=== PATIENT | male | born 1955 | race Caucasian/White ===

== ENCOUNTER 2020-12-03 12:39 | Emergency (ER) | payer MEDICARE, SELFPAY ==
[2020-12-03 13:00] VITALS: BP 122/78; PULSE 74; RESP 16; TEMP 36.3; O2SAT 100
--- NOTE | 2020-12-03 13:46 | ED.GENADULT ---
HPI - General Adult General Chief complaint: Extremity Problem,Nontraumatic Stated complaint: INFECTED TOE Time Seen by Provider: 12/03/20 13:46 Source: patient and RN notes reviewed Mode of arrival: ambulatory Limitations: no limitations History of Present Illness HPI narrative: 65-year-old male presents with complaints of RT big toe with drainage, swelling, warmth, tenderness, and redness for the past 2 weeks. ?Ezra reports he initially removed a hangnail from the RT big toe approximately 3 weeks ago, swelling, warmth, tenderness, and redness started 1.5 weeks later and increased over the past 2-3 days with drainage. ?Soaking foot in Epsom salt and applying Neosporin ointment without relief. ?Denies numbness and tingling. ?No weakness of toe. ?Denies fever or chills. ?Denies immobility. ?Exacerbation is movement and palpation of the toe. ?No relieving factors. ?Break in skin with intermittent pus drainage. ?Denies abdominal pain, nausea, or vomiting. ?No history of MRSA. Remains active. ?The patient reports he has not been diagnosed with COVID-19. ?The patient reports he received 2 [employer] COVID-19 vaccines. The patient reports he is not waiting for the results of a COVID-19 lab test. ?The patient reports he does not have weakness, fatigue, or myalgia. The patient reports he does not have a new or worsening cough or shortness of breath. ?The patient reports he does not have any rhinorrhea, congestion, loss of taste or smell, sore throat, and diarrhea. ?Denies recent traveling. Denies concerns for COVID-19 or exposures. At this time, the patient is not suspected of having COVID-19. Some parts of this dictation were generated by voice recognition software and may contain typographical and/or grammatical inaccuracies. Related Data Home Medications Medication Instructions Recorded Confirmed esomeprazole magnesium 20 mg 20 mg PO DAILY 06/23/19 12/03/20 tablet,delayed release losartan 100 mg tablet 100 mg PO DAILY 11/26/19 12/03/20 Allergies Allergy/AdvReac Type Severity Reaction Status Date / Time No Known Allergies Allergy Verified 12/03/20 13:28 Review of Systems Review of Systems: Narrative: CONSTITUTIONAL: Denies fever, chills, sweats. EYES: Denies visual changes, redness, discharge. ENT: Denies rhinorrhea, congestion, sore throat, otalgia. CARDIOVASCULAR: Denies chest pain, palpitations, edema. RESPIRATORY: Denies dyspnea, wheezing, cough. GASTROINTESTINAL: Denies abdominal pain, nausea, vomiting, diarrhea. SKIN: Denies rash or itching. Complaints of RT great toe with drainage, swelling, warmth, tenderness, and redness. MUSCULOSKELETAL: Denies acute back pain or myalgia. Complaints of RT great toe with drainage, swelling, warmth, tenderness, and redness. NEUROLOGIC: Denies numbness or focal weakness. PSYCHIATRIC: Denies anxiety or depression. All other systems reviewed are negative, except as documented in HPI and below. [facility] Past Medical History Medical History Arm fracture, left 5 y/o, lt arm and wrist Arthritis Back pain GERD (gastroesophageal reflux disease) Gout Hepatitis C antibody test negative (01/02/18) History of right common carotid artery stent placement HTN (hypertension) Hypothyroid Laryngeal cancer Pneumonia 03-25-19 Skin lesion Surgical History Surgical History History of appendectomy History of laryngectomy History of partial thyroidectomy Tracheostomy present Family History Family History Mother Carcinoma of colon Father Malignant neoplasm of prostate Sibling Hypertension Malignant neoplasm of prostate Social History Social History Social History: The patient stated that he smoked for 30 years. The most he smoked was 2 packs of cigarettes a day
== END 2020-12-03 13:57 | disposition home or self-care (01) ==
PROVIDERS: Emergency Provider Nurse Practitioner Family; PCP Family Medicine
DX: L03.031 Cellulitis of right toe (principal); Z87.891 Personal history of nicotine dependence; M19.90 Unspecified osteoarthritis, unspecified site; K21.9 Gastro-esophageal reflux disease without esophagitis; M10.9 Gout, unspecified; E03.9 Hypothyroidism, unspecified; I10 Essential (primary) hypertension; Z85.21 Personal history of malignant neoplasm of larynx; Z90.02 Acquired absence of larynx; Z93.0 Tracheostomy status
CPT/HCPCS: 99213; G0463

== ENCOUNTER 2021-02-22 08:06 | Outpatient (CLI) | payer MEDICARE, SELFPAY ==
--- NOTE | ~2021-02-22 | US_ITS ---
EXAMINATION: US art doppler w danae FIELDS EXAM DATE: 02/22/2021 08:54 INDICATION: Peripheral arterial disease. Peripheral vascular disease. TECHNIQUE: Segmental pressures and plethysmographic and Doppler waveforms of the brachial and lower e xtremity arteries were obtained. There is no prior study for comparison. FINDINGS: Right and left brachial artery pressures of 149 mm Hg and 145 mm Hg, respectively, are concordant (no rmal difference <= 30 mmHg). RIGHT LEG: The ankle-brachial index (LINDA) is 1.17 (normal >= 0.9-1). The great toe-brachial index (TBI) is 0.87 (normal >= 0.65). The lower extremity ratios, segmental pressure gradients as follows; Proximal superficial femoral artery:- Could not obtain ( mmHg). Distal superficial femoral artery: ----- Could not obtain ( mmHg). Popliteal: 1.31 (195 mmHg). Dorsalis pedis: 0.98 (146 mmHg). Posterior tibial: 1.07 (159 mmHg). (Normal gradients <= 20-30 mmHg between adjacent levels on the same leg or the same levels on the two legs). Arterial waveforms are biphasic. LEFT LEG: The ankle-brachial index (LINDA) is 1.21 (normal >= 0.9-1). The great toe-brachial index (TBI) is 0.91 (normal >= 0.65). The lower extremity ratios, segmental pressure gradients as follows; Proximal superficial femoral artery:- Could not obtain ( mmHg). Distal superficial femoral artery: ----- Could not obtain ( mmHg). Popliteal: Could not obtain ( mmHg). Dorsalis pedis: 1.21 (180 mmHg). Posterior tibial: 0.56 (83 mmHg). (Normal gradients <= 20-30 mmHg between adjacent levels on the same leg or the same levels on the two legs). Arterial waveforms are biphasic. IMPRESSION: 1. Right ankle-brachial index 1.07, normal. 2. Left ankle-brachial index 1.21, normal. 3. Segmental pressures as above. Reviewed, dictated and finalized at location A.
== END 2021-02-22 08:07 | disposition home or self-care (01) ==
LOC: ANHIMG 08:07
PROVIDERS: PCP Family Medicine; Visit Provider Internal Medicine Cardiovascular Disease
DX: I73.9 Peripheral vascular disease, unspecified (principal)
CPT/HCPCS: 93923

== ENCOUNTER → 2021-06-12 10:14 | Outpatient (CLI) | payer MEDICARE, SELFPAY ==
--- NOTE | ~2021-06-12 | US_ITS ---
EXAMINATION: US right upper quadrant DATE: 06/12/2021 10:47 INDICATION: Abnormal levels of other serum enzymes. TECHNIQUE: Multiple grayscale and Doppler ultrasound images of the abdomen were obtained. COMPARISON: Chest CT 03/22/2019 FINDINGS: The visualized portions of the head, body, and tail of the pancreas are normal. The liver d emonstrates diffuse steatosis. No liver surface nodularity. The gallbladder is normal in size and con tains stones. Gallbladder wall thickening is noted. There is no sonographic Pagan sign. The common d uct is normal and measures 5 mm. IMPRESSION: 1. Diffuse hepatic steatosis. 2. Cholelithiasis. Gallbladder wall thickening may be secondary to chronic cholecystitis or chronic l iver disease. Reviewed, dictated and finalized at location A. 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 Diffuse hepatic steatosis. 2. Cholelithiasis. Gallbladder wall thickening may be secondary to chronic chol ecystitis or chronic liver disease.
== END ==
PROVIDERS: PCP Family Medicine; Visit Provider Family Medicine
DX: R74.8 Abnormal levels of other serum enzymes (principal); K76.0 Fatty (change of) liver, not elsewhere classified; K80.20 Calculus of gallbladder without cholecystitis without obstruction
CPT/HCPCS: 76705

== ENCOUNTER 2021-07-18 01:30 | Day surgery (SDC) | payer MEDICARE, SELFPAY ==
[2021-07-10 14:57] VITALS: BMI 34.2
[2021-07-18 08:38] VITALS: BP 126/78; PULSE 76; RESP 17; TEMP 36.2; O2SAT 99; BMI 34.4
[2021-07-18] MEDS: LACTATED RINGERS 1,000 ML 150 ML IV CONT (08:55)
--- NOTE | 2021-07-18 09:06 | WPDGICN ---
Assessment and Plan Assessment and plan (1) Personal history of malignant neoplasm of larynx: Code(s): Z85.21 - Personal history of malignant neoplasm of larynx Status: Chronic (2) History of colon polyps: Code(s): Z86.010 - Personal history of colonic polyps Status: Acute Assessment and Plan: Patient has a history of colon polyps removed from the colon 2015. Surveillance colonoscopy advised at this time in 5 year intervals in the future. (3) Family history of colon cancer in mother: Code(s): Z80.0 - Family history of malignant neoplasm of digestive organs Status: Acute Assessment and Plan: Patient's mother has had colon cancer. Plan is for surveillance colonoscopy now on a 5 year intervals in the future. GI Consult Note Consult date/time: 07/18/21 09:06 HPI: Ezra Soto is a 66 year old male Presents for screening colonoscopy. Patient has a prior history of colon polyps most recently 2015. Family history is significant his mother had colon cancer. Patient reports that his current weight appetite and bowel movements are normal. He denies abdominal pain. He has had no bleeding. Presents today for neoplasia screening. Patient has a distant history of laryngectomy for throat cancer. He admits to rather significant frequent alcohol intake. Review of Systems Review of Systems: All systems reviewed & are unremarkable except as noted in HPI and below PMFSH Past Medical History Medical History (Updated 07/18/21 @ 09:08 by Daron De La Vega MD) Arm fracture, left 5 y/o, lt arm and wrist Arthritis Back pain GERD (gastroesophageal reflux disease) Gout Hepatitis C antibody test negative (01/02/18) History of right common carotid artery stent placement HTN (hypertension) Hypothyroid Laryngeal cancer Pneumonia 03-25-19 Skin lesion Surgical History Surgical History (Updated 05/29/21 @ 09:50 by Tia Rajput PA-C) History of appendectomy History of laryngectomy History of partial thyroidectomy Tracheostomy present Family History Family History Mother Carcinoma of colon Father Malignant neoplasm of prostate Sibling Hypertension Malignant neoplasm of prostate Social History Social History Social History: The patient stated that he smoked for 30 years. The most he smoked was 2 packs of cigarettes a day. The patient quit 10 years ago. The patient is but has no children. 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 her name is JAYCE Smoking packs per day: 1 Smoking cigarettes per day: 20.0 Years smoked: 10 Smoking pack-years: 10.00 Smoking status: Former smoker Tobacco type: cigarettes Smokeless tobacco user: chewing tobacco and snuff Alcohol intake: current Drinks per week: 35 Substance use: never Substance use type: does not use Living arrangements: with family Additional occupation/education comments: From the [employer] Gender identity (if verbalized by the patient): Male Spiritual care concerns: No Agree to blood products: Yes Meds Home Medications and Allergies Home Medications Medication Instructions Recorded Confirmed Type esomeprazole magnesium 20 mg 20 mg PO DAILY PRN 06/23/19 07/18/21 History tablet,delayed release losartan 100 mg tablet 100 mg PO DAILY 11/26/19 07/18/21 History aspirin [Adult Low Dose Aspirin] 81 mg PO DAILY 12/19/20 07/18/21 History carvedilol 6.25 mg PO BID 12/19/20 07/18/21 History nifedipine 30 mg PO DAILY 12/19/20 07/18/21 History atorvastatin 40 mg tablet See Rx Instructions .ROUTE 01/23/21 07/18/21 Rx .COMPLEX #90 tablet levothyroxine 75 mcg tablet See Rx Instructions .ROUTE 06/19/21 07/18/21 Rx .COMPLEX #90 tablet Allergies Allergy/AdvReac Type Severity Reaction Status Date / Time No Known Allergies A
--- NOTE | 2021-07-18 09:35 | WPDANESEPPF ---
Anes - Initial Pre Proc Eval Procedure: Operation Date: 07/18/21 10:00 Proposed Procedures p Screening Colonoscopy - Daron De La Vega MD Date/Time: 07/18/21 09:35 Surgeon: Daron De La Vega MD Pre Op Diagnosis: hx of rectal polyps, family hx of colon ca Patient Data Age: 66 Gender: M Height: 1.73 m Weight: 102.7 kg Last Vital Signs Temp 97.1 F L 07/18/21 08:38 Pulse 76 07/18/21 08:38 Resp 17 07/18/21 08:38 BP 126/78 07/18/21 08:38 Pulse Ox 99 07/18/21 08:38 Allergies Allergy/AdvReac Type Severity Reaction Status Date / Time No Known Allergies Allergy Verified 07/18/21 08:36 Home Medications Medication Instructions Recorded Confirmed Type esomeprazole magnesium 20 mg 20 mg PO DAILY PRN 06/23/19 07/18/21 History tablet,delayed release losartan 100 mg tablet 100 mg PO DAILY 11/26/19 07/18/21 History aspirin [Adult Low Dose Aspirin] 81 mg PO DAILY 12/19/20 07/18/21 History carvedilol 6.25 mg PO BID 12/19/20 07/18/21 History nifedipine 30 mg PO DAILY 12/19/20 07/18/21 History atorvastatin 40 mg tablet See Rx Instructions .ROUTE 01/23/21 07/18/21 Rx .COMPLEX #90 tablet levothyroxine 75 mcg tablet See Rx Instructions .ROUTE 06/19/21 07/18/21 Rx .COMPLEX #90 tablet Patient hx anesthesia problems: none Family hx anesthesia problems: none Results Review: All pre-operative results and documents have been reviewed as part of the pre-operative evaluation. [facility] Past Medical History Medical History (Updated 07/18/21 @ 09:08 by Daron De La Vega MD) Arm fracture, left 5 y/o, lt arm and wrist Arthritis Back pain GERD (gastroesophageal reflux disease) Gout Hepatitis C antibody test negative (01/02/18) History of right common carotid artery stent placement HTN (hypertension) Hypothyroid Laryngeal cancer Pneumonia 03-25-19 Skin lesion Surgical History Surgical History (Updated 05/29/21 @ 09:50 by Tia Rajput PA-C) History of appendectomy History of laryngectomy History of partial thyroidectomy Tracheostomy present Family History Family History Mother Carcinoma of colon Father Malignant neoplasm of prostate Sibling Hypertension Malignant neoplasm of prostate Social History Social History Social History: The patient stated that he smoked for 30 years. The most he smoked was 2 packs of cigarettes a day. The patient quit 10 years ago. The patient is but has no children. 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 her name is JAYCE Smoking packs per day: 1 Smoking cigarettes per day: 20.0 Years smoked: 10 Smoking pack-years: 10.00 Smoking status: Former smoker Tobacco type: cigarettes Smokeless tobacco user: chewing tobacco and snuff Alcohol intake: current Drinks per week: 35 Substance use: never Substance use type: does not use Living arrangements: with family Additional occupation/education comments: From the [employer] Gender identity (if verbalized by the patient): Male Spiritual care concerns: No Agree to blood products: Yes Anes - Eval Final PreProcedure Day of Procedure 07/18/21 09:35 Patient weight: obese Heart: regular rate and rhythm Lungs: clear to auscultation Airway: Mallampati scale (has tracheostomy; will use trache collar for oxygen) class III Neurological: alert and oriented Last oral intake: >/= 8 hours ASA classification: III Emergent: no Anesthetic plan: proceed Anesthesia type and monitoring: general GIVS and standard monitoring Results Review: All pre-operative results and documents have been reviewed as part of the pre-operative evaluation. Informed Consent: The patient's anesthetic plan and its attendant risks and benefits were discussed with the patient/family/POA. Questions were solicited and answers provided to the satisfaction of the patient
[2021-07-18 10:07] VITALS: BP 93/52; PULSE 77; RESP 19; O2SAT 99
[2021-07-18 10:17] VITALS: BP 107/62; PULSE 76; RESP 17; O2SAT 100
[2021-07-18 10:27] VITALS: BP 122/70; PULSE 66; RESP 16; O2SAT 100
== END 2021-07-18 10:30 | disposition home or self-care (01) ==
PROVIDERS: PCP Family Medicine; Visit Provider Internal Medicine Gastroenterology
PROC: 0DJD8ZZ Inspection of Lower Intestinal Tract, Via Natural or Artificial Opening Endoscopic (ICD-10-PCS; CPT 45378; principal; 2021-07-18 10:00)
DX: Z12.11 Encounter for screening for malignant neoplasm of colon (principal); K64.8 Other hemorrhoids; K57.30 Diverticulosis of large intestine without perforation or abscess without bleeding; Z86.010 Personal history of colon polyps; Z80.0 Family history of malignant neoplasm of digestive organs; Z85.21 Personal history of malignant neoplasm of larynx; K21.9 Gastro-esophageal reflux disease without esophagitis; I10 Essential (primary) hypertension; E03.9 Hypothyroidism, unspecified; M10.9 Gout, unspecified; Z95.5 Presence of coronary angioplasty implant and graft; Z87.891 Personal history of nicotine dependence; E66.9 Obesity, unspecified; Z68.34 Body mass index [BMI] 34.0-34.9, adult
CPT/HCPCS: G0105; J2704; J7120

== ENCOUNTER 2022-02-02 09:16 | Outpatient (CLI) | payer MEDICARE, SELFPAY ==
--- NOTE | ~2022-02-02 | XR_ITS ---
XR thoracic spine 3V DATE: 02/02/2022 09:43 INDICATION: Back pain for months. No injury. TECHNIQUE: AP and lateral views COMPARISON: 02/02/2022 lumbar spine FINDINGS: No fracture or dislocation or bone destruction. The thoracic pedicles are intact. There is mild degenerative spurring of the thoracic spine. No paraspinal soft tissue thickening. IMPRESSION: Mild degenerative spurring Reviewed, dictated and finalized at location B. IMPRESSION: Mild degenerative spurring
--- NOTE | ~2022-02-02 | XR_ITS ---
XR lumbar spine min 4V DATE: 02/02/2022 09:43 INDICATION: Intermittent back pain for months TECHNIQUE: AP, lateral, coned lateral lumbosacral and bilateral oblique views COMPARISON: None FINDINGS: There is mild rotatory levoscoliosis of the lumbar spine. There is moderate degenerative disc disease at L2-3 and L4-5, mild degenerative disc disease at L3-4. Moderately severe degenerative disc disease and minimal retrolisthesis at L5-S1. No fracture or bone destruction is detected. The included lower thoracic and lumbar pedicles are inta ct. No spondylolysis. The sacroiliac joints are intact. There is abdominal aortic and bilateral iliac artery calcification; no apparent abdominal aortic aneu rysm. IMPRESSION: Multilevel degenerative disc disease, greatest at L5-S1 Reviewed, dictated and finalized at location B.
== END 2022-02-02 09:17 | disposition home or self-care (01) ==
LOC: ANHIMG 09:19
PROVIDERS: PCP Family Medicine; Visit Provider Family Medicine
DX: M51.37 Other intervertebral disc degeneration, lumbosacral region (principal)
CPT/HCPCS: 72072; 72110

== ENCOUNTER 2023-03-02 07:56 | Outpatient (CLI) | payer MEDICARE, SELFPAY ==
--- NOTE | ~2023-03-02 | CT_ITS ---
EXAMINATION: CT lung screening DATE: 03/02/2023 08:21 INDICATION: Former smoker. History of tobacco dependence. TECHNIQUE: Computed tomography (CT) of the chest was performed without intravenous contrast. The dose -length product was 277.79 mGy-cm. Automated exposure control and iterative reconstruction technique were employed. COMPARISON: CT dated 03/22/2019 FINDINGS: No thoracic lymphadenopathy. Heart size normal. No significant pleural or pericardial effus ion. There is atherosclerosis of the aorta and coronary arteries. There are probable gallstones. Cons ider ultrasound correlation. There is evidence for chronic granulomatous disease. There is emphysema. There is a focus of groundglass opacification right upper lobe, image 39, with a solid nodular compo nent measuring 4 mm and a groundglass component measuring 1 cm. No endobronchial lesions. No pneumoth orax. IMPRESSION: 1. Lung-RADS category 3: Probably benign. Further evaluation is recommended with noncontrast low-dose chest CT in 6 months. Reviewed, dictated and finalized at location A. IMPRESSION: 1. Lung-RADS category 3: Probably benign. Further evaluation is recommended wit h noncontrast low-dose chest CT in 6 months.
== END 2023-03-02 07:57 | disposition home or self-care (01) ==
PROVIDERS: PCP Family Medicine; Visit Provider Family Medicine
DX: Z12.2 Encounter for screening for malignant neoplasm of respiratory organs (principal); R91.8 Other nonspecific abnormal finding of lung field; Z87.891 Personal history of nicotine dependence
CPT/HCPCS: 71271

== ENCOUNTER 2023-06-24 08:32 | Outpatient (CLI) | payer MEDICARE, SELFPAY ==
--- NOTE | ~2023-06-24 | CT_ITS ---
CT Scan of the Chest without Contrast: Clinical Indication: Solitary pulmonary nodule Technique: Contiguous sections were acquired throughout the chest without intravenous contrast. Dose reduction technique was used on this scan by utilizing automated exposure control and iterative recon struction technique. The dose-length product (DLP) was 239.79 mGy-cm. COMPARISON: 03/02/2023 Findings: There is no evidence of any significant mediastinal, hilar or axillary lymphadenopathy. Coronary blair ry calcifications are present. There is no evidence of pleural or pericardial effusion. Groundglass right upper lobe pulmonary nodule with possible tiny solid component is similar appearanc e to prior exam. No new pulmonary nodule seen. Images through the upper abdomen reveal no abnormalities. Impression: Groundglass right upper lobe pulmonary lesion with probable tiny solid component is similar to prior exam. Annual follow-up is advised. Reviewed, dictated and finalized at [facility]. 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 Annual follow-up is advised.
== END 2023-06-24 08:33 | disposition home or self-care (01) ==
PROVIDERS: PCP Family Medicine; Visit Provider Nurse Practitioner
DX: R91.1 Solitary pulmonary nodule (principal)
CPT/HCPCS: 71250; J1200; J2704

== ENCOUNTER 2024-01-22 18:42 | Observation (INO) | payer MEDICARE, SELFPAY ==
--- NOTE | ~2024-01-22 | CT_ITS ---
CT abdomen pelvis wo con Ordering provider: Sonu Marin MD History: 68 years Male with . Abdominal pain . Comparison: None. Technique: CT abdomen and pelvis without IV and without oral contrast. Automated exposure control and iterative reconstruction technique were employed. The dose-length product was 1119.28 mGy-cm. Findings: VISUALIZED LOWER CHEST: Normal. UPPER ABDOMINAL ORGANS: Liver: Normal. Gallbladder: Distended with orally stones. Spleen: Normal. Stomach/duodenum: Normal. Pancreas: Atrophic Adrenals: Normal. Kidneys: Normal. PELVIC ORGANS: The bladder is normal. BOWEL AND MESENTERY: Colon: No evidence of diverticulitis. No evidence of appendicitis. Small Bowel: Normal. No obstruction. Peritoneum/mesentery: No free air or free fluid. No mesenteric lymphadenopathy. RETROPERITONEUM: Mild atheromatous disease of the abdominal aorta. No retroperitoneal lymphadenopat hy. MUSCULOSKELETAL: Superficial soft tissues: The superficial soft tissues are normal. Bones: Age appropriate degenerative changes of the spine. IMPRESSION: 1. Distended gallbladder with cholelithiasis. 2. No evidence of appendicitis, diverticulitis or intestinal obstruction. No kidney stones. Reviewed, dictated and finalized at location A. IMPRESSION: 1. Distended gallbladder with cholelithiasis. 2. No evidence of appendicitis, diverticulitis or intestinal obstruction. No k idney stones.
--- NOTE | ~2024-01-22 | US_ITS ---
EXAMINATION: US abdomen limited DATE: 01/23/2024 12:05 INDICATION: Epigastric pain. Cholelithiasis. TECHNIQUE: Multiple grayscale and Doppler ultrasound images of the abdomen were obtained. COMPARISON: None FINDINGS: There is a large portion of the body the pancreas is normal. The majority the pancreas is obscured. T he visualized proximal inferior vena cava is normal. Liver has normal contour, with a smooth surface. There is increased parenchymal echogenicity and coarsened echotexture consistent with diffuse hepati c steatosis. No liver lesion identified. No intrahepatic biliary duct dilation suspected. Portal marleny ous flow was seen in the hepatopetal, normal direction and has normal Doppler waveform. There is hypo echoic sludge in the gallbladder with a few more echogenic and shadowing gallstones at the neck of th e gallbladder. There is mild diffuse gallbladder wall thickening with trace amount of pericholecystic fluid. Sonographic Pagan sign was reported as negative by the rn staff. IMPRESSION: 1. Cholelithiasis with mild gallbladder wall thickening and trace amount of pericholecystic fluid sameer picious for acute cholecystitis but with negative sonographic Pagan's on. Correlate for history of d iabetes or recent analgesic use which could mask a true positive sonographic Pagan sign. Otherwise c ould consider HIDA scan for further evaluation as clinically indicated. Reviewed, dictated and finalized at location B. IMPRESSION: 1. Cholelithiasis with mild gallbladder wall thickening and trace amount of per icholecystic fluid suspicious for acute cholecystitis but with negative sonogra phic Pagan's on. Correlate for history of diabetes or recent analgesic use whi ch could mask a true positive sonographic Pagan sign. Otherwise could consider HIDA scan for further evaluation as clinically indicated.
--- NOTE | ~2024-01-22 | XR_ITS ---
XR chest 2V Ordering provider: Jayjay Clay MD History: 68 years Male with . upper back pain . Comparison: March 22, 2019 FINDINGS: MEDIASTINUM: The cardiac silhouette is not enlarged. LUNGS: No infiltrates, effusions or pneumothorax. OTHER: No free air under the diaphragm. Degenerative changes of the spine. IMPRESSION: No acute cardiopulmonary pathology. Reviewed, dictated and finalized at location A.
[2024-01-22 19:00] VITALS: BP 210/93; PULSE 68; RESP 16; TEMP 36.6; O2SAT 100
--- NOTE | 2024-01-22 19:05 | ECG_ITS ---
Test Date: 2024-01-22 19:07:35 Measurements Intervals [place] Rate: 67 P: 61 SC: 208 QRS: 38 QRSD: 94 T: 43 QT: 366 QTc: 387 Interpretive Statements SINUS RHYTHM INCOMPLETE RIGHT BUNDLE BRANCH BLOCK DELAYED PRECORDIAL R/S TRANSITION MINIMAL Q WAVES- INFERIOR LEADS BASELINE ARTIFACT- I, II, III, AVR, AVL, AVF, V5-V6 BORDERLINE ECG No previous ECG available for comparison Electronically Signed On 01-22-2024 19:22:39 CDT by Fernando Butt D.O.
[2024-01-22 19:24] LABS: Basophils Absolute Auto 0.1 K/mm3 (0.0-0.1); Basophils Percent Auto 0.6 % (0.2-1.2); Eosinophils Absolute Auto 0.3 K/mm3 (0-0.3); Eosinophils Percent Auto 3.4 % (0-4.4); Hematocrit 41.7 % (42.0-52.0); Hemoglobin 14.3 g/dL (14.0-18.0); Immature Granulocyte Absolute 0.02 K/mm3 (0.00-0.031); Immature Granulocyte Percent A 0.2 % (0-0.5); Lymphocytes Absolute Auto 1.57 K/mm3 (0.9-3.2); Lymphocytes Percent Auto 19.1 % (18.3-44.2); Mean Corpuscular HGB Conc 34.3 g/dl (32-36); Mean Corpuscular Hemoglobin 33.4 pg (26-34); Mean Corpuscular Volume 97.4 fl (80-100); Mean Platelet Volume 10.7 fl (7.4-10.4); Monocytes Absolute Auto 1.3 K/mm3 (0.1-0.6); Monocytes Percent Auto 15.2 % (2.6-8.5); Neutrophils Absolute Auto 5.1 K/mm3 (1.3-6.7); Neutrophils Percent Auto 61.5 % (45.5-73.1); Platelet Count Result 232 k/mm3 (150-375); Red Blood Count 4.28 M/mm3 (4.6-6.20); Red Cell Distribution Width 12.5 % (11.5-14.5); White Blood Count 8.2 K/mm3 (4.5-10.0)
[2024-01-22 19:43] LABS: Alanine Aminotransferase 121 U/L (6-50); Albumin Level 4.5 g/dL (3.5-5.1); Alkaline Phosphatase 104 U/L (38-126); Anion Gap 12 mmol/L (4-12); Aspartate Amino Transferase 47 U/L (17-59); Bilirubin,Total 0.6 mg/dL (0.2-1.3); Blood Urea Nitrogen 28 mg/dL (9-20); Carbon Dioxide 25 mmol/L (22-30); Chloride 99 mmol/L (98-107); Estimated CRCL calculation 41 ml/min; Estimated Glomerular Filt Rate 37; Glucose 137 mg/dL (65-110); Lipase 127 U/L (23-300); Potassium 4.8 mmol/L (3.4-5.0); Sodium 136 mmol/L (137-145)
[2024-01-22 19:54] LABS: Troponin I < 0.012 ng/mL (0.000-0.034)
[2024-01-23] VITALS (13 sets, daily range): BP systolic 113–151; BP diastolic 52–79; PULSE 60–85; RESP 12–16; TEMP 36.4–36.8; O2SAT 95–100
[2024-01-23] MEDS: ONDANSETRON INJ 4 MG/2 ML VIAL IV PUSH (00:17)
[2024-01-23] MEDS: HYDROmorphone HCL INJ (*CRX) 1 MG/ML SYR IV PUSH (00:18)
[2024-01-23] MEDS: SODIUM CHLORIDE 0.9% IV 1,000 ML 999 ML IV CONT (00:18)
[2024-01-23 00:30] LABS: Add Urine Microscopic? NO; Appearance Urine Clear (Clear); Bilirubin Urine Negative (Negative); Blood Urine Negative (Negative); Color Urine Yellow (Yellow); Glucose Urine UA Negative (Negative); Ketones Urine Negative (Negative); Leukocyte Esterase Ur Negative LEU/UL (Negative); Nitrate Urine Negative (Negative); Protein Urine Negative (Negative); Specific Grav Ur 1.017 (1.001-1.035); Urobilinogen Urine 0.2 mg/dL (<2.0)
--- NOTE | 2024-01-23 00:34 | ED.GENADULT ---
HPI - General Adult General Chief complaint: Abdominal Pain Stated complaint: abd pain Time Seen by Provider: 01/22/24 23:36 History of Present Illness HPI narrative: Patient is a 68-year-old gentleman presents emergency department with chief complaint of epigastric pain that radiates into his back patient reports not had any nausea or vomiting the patient reports that he does feel well patient does report that his blood pressures been elevated Related Data Home Medications Medication Instructions Recorded Confirmed esomeprazole magnesium 20 mg 20 mg PO DAILY PRN Acid Reflux 06/23/19 11/21/23 tablet,delayed release (Nexium 24HR) losartan 100 mg tablet 100 mg PO DAILY 11/26/19 11/21/23 aspirin 81 mg tablet 81 mg PO DAILY 12/19/20 11/21/23 carvedilol 6.25 mg tablet 6.25 mg PO BID 12/19/20 11/21/23 spironolactone 25 mg tablet 25 mg PO DAILY 05/16/23 11/21/23 Allergies Allergy/AdvReac Type Severity Reaction Status Date / Time No Known Allergies Allergy Verified 11/21/23 08:33 Review of Systems Review of Systems: A 10 system review of systems was completed on the patient and is negative except for what is stated in the HPI. Nursing and ancillary documentation was reviewed. [facility] Past Medical History Medical History Arm fracture, left 5 y/o, lt arm and wrist Arthritis Back pain GERD (gastroesophageal reflux disease) Gout Hepatitis C antibody test negative (01/02/18) History of right common carotid artery stent placement HTN (hypertension) Hypothyroid Laryngeal cancer Pneumonia 03-25-19 Skin lesion Surgical History Surgical History History of appendectomy History of laryngectomy History of partial thyroidectomy Tracheostomy present Family History Family History Mother Carcinoma of colon Father Malignant neoplasm of prostate Sibling Hypertension Malignant neoplasm of prostate Social History Social History Social History: The patient stated that he smoked for 30 years. The most he smoked was 2 packs of cigarettes a day. The patient quit 10 years ago. The patient is but has no children. 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 her name is JAYCE Smoking packs per day: 1 Smoking cigarettes per day: 20.0 Years smoked: 10 Smoking pack-years: 10.00 Smoking status: Former smoker Tobacco type: cigarettes Smokeless tobacco user: chewing tobacco and snuff Alcohol intake: current Drinks per week: 35 Substance use: never Substance use type: does not use Lack of Transportation: No Lack of Food: Never True Current Housing: I Have Housing Concerned About Future Housing: No Difficulty Paying Gas/Electric Bills: No Difficulty Paying for Meds: No Currently Unemployed: No Education: High School Diploma/GED Difficulty w/ Childcare or Family Care: No Living arrangements: with family Occupation/Education: retired Additional occupation/education comments: From the [employer] Gender identity (if verbalized by the patient): Male Spiritual care concerns: No Agree to blood products: Yes Exam Narrative: GENERAL: Well-appearing, well-nourished, and in no acute distress. HEAD: Normocephalic, atraumatic. EYES: PERRLA and EOMI. ENT: Nares clear, no rhinorrhea or epistaxis. Mucous membranes moist. NECK: Supple. CHEST: Clear to auscultation. No respiratory distress. HEART: Regular rate and rhythm. No murmur heard. Normal peripheral pulses. ABDOMEN: Soft, tenderness to palpation the epigastric region, nondistended, normal active bowel sounds. EXTREMITIES: Normal range of motion. No edema. SKIN: Warm, dry, no rash. NEURO: No focal deficits. Alert and oriented x3. PSYCH: Normal m
--- NOTE | 2024-01-23 02:09 | ADMGEN ---
This patient, Ezra Soto, was admitted to IMU Room 214-01. Patient/family oriented to hospital policies and general routines including ID bracelet, bed and alarms, visiting hours, pain management, procedures, bathroom and other care routines, personal items, smoking policy, room service/diet, and visiting hours. Information on how to activate the Rapid Response Team has been discussed. Patient/Family are encouraged to report perceived risks to care and to ask questions if they do not understand what they are told or what they should do.
[2024-01-23 04:49] LABS: Troponin I < 0.012 ng/mL (0.000-0.034)
[2024-01-23] MEDS: SODIUM CHLORIDE 0.9% IV 1,000 ML 125 ML IV CONT ×2 (06:10→17:13)
[2024-01-23 07:04] LABS: Troponin I 0.014 ng/mL (0.000-0.034)
--- NOTE | 2024-01-23 08:51 | PM.IMHP ---
H&P: HPI History of Present Illness Date/Time: 01/23/24 08:51 Chief Complaint: Abdominal pain Narrative: Patient is a 68-year-old gentleman presents emergency department with chief complaint of epigastric pain that radiates into his back and shoulder. Associated is nausea to some extent. No vomiting. No fever. He was hypertensive on ED evaluation. Show any acute ST-T changes initial troponin was negative. Laboratory study showed creatinine 1.8 and last creatinine was 1.07. CT scan showed cholelithiasis without evidence of cholecystitis. Serial troponin was negative. Urinalysis is negative. Lipase came back at 127. He is admitted in this setting for further treatment. He reports no further abdominal pain. He Is currently NPO for an abdominal ultrasound. Review of Systems Review of Systems: - CONSTITUTIONAL: Denies weight loss, fever and chills. - HEENT: Denies changes in vision and hearing - RESPIRATORY: Denies SOB and cough. - CV: Denies palpitations and CP. - GI: Reports abdominal pain, nausea, denies vomiting and diarrhea. - : Denies dysuria and urinary frequency. - MSK: Denies myalgia and joint pain. - SKIN: Denies rash and pruritus. - NEUROLOGICAL: Denies headache and syncope. - PSYCHIATRIC: Denies recent changes in mood. Denies anxiety and depression. [facility] Past Medical History Medical History Arm fracture, left 5 y/o, lt arm and wrist Arthritis Back pain GERD (gastroesophageal reflux disease) Gout Hepatitis C antibody test negative (01/02/18) History of right common carotid artery stent placement HTN (hypertension) Hypothyroid Laryngeal cancer Pneumonia 03-25-19 Skin lesion Surgical History Surgical History History of appendectomy History of laryngectomy History of partial thyroidectomy Tracheostomy present Family History Family History Mother Carcinoma of colon Father Malignant neoplasm of prostate Sibling Hypertension Malignant neoplasm of prostate Social History Social History Social History: The patient stated that he smoked for 30 years. The most he smoked was 2 packs of cigarettes a day. The patient quit 10 years ago. The patient is but has no children. 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 JAYCE Smoking packs per day: 1 Smoking cigarettes per day: 20.0 Years smoked: 10 Smoking pack-years: 10.00 Smoking status: Former smoker Tobacco type: cigarettes Smokeless tobacco user: chewing tobacco and snuff Alcohol intake: current Drinks per week: 28 Substance use: never Substance use type: does not use Do You Feel Safe in your Home?: Yes Lack of Transportation: No Lack of Food: Never True Current Housing: I Have Housing Concerned About Future Housing: No Difficulty Paying Gas/Electric Bills: No Difficulty Paying for Meds: No Currently Unemployed: No Education: Bachelor's Degree Difficulty w/ Childcare or Family Care: No Living arrangements: with family Occupation/Education: retired Additional occupation/education comments: From the [employer] Gender identity (if verbalized by the patient): Male Spiritual care concerns: No Agree to blood products: Yes Meds Home Medications and Allergies Home Medications Medication Instructions Recorded Confirmed Type losartan 100 mg tablet 100 mg PO DAILY 11/26/19 01/23/24 History aspirin 81 mg tablet 81 mg PO DAILY 12/19/20 01/23/24 History carvedilol 6.25 mg tablet 6.25 mg PO BID 12/19/20 01/23/24 History spironolactone 25 mg tablet 25 mg PO DAILY 05/16/23 01/23/24 History atorvastatin 40 mg tablet 40 mg PO DAILY #90 tabs 01/08/24 01/23/24 Rx levothyroxine 75 mcg tablet 0.75
[2024-01-23 09:03] LABS: Basophils Absolute Auto 0.1 K/mm3 (0.0-0.1); Basophils Percent Auto 0.5 % (0.2-1.2); Eosinophils Absolute Auto 0.1 K/mm3 (0-0.3); Eosinophils Percent Auto 1.4 % (0-4.4); Hematocrit 37.1 % (42.0-52.0); Hemoglobin 12.7 g/dL (14.0-18.0); Immature Granulocyte Absolute 0.03 K/mm3 (0.00-0.031); Immature Granulocyte Percent A 0.3 % (0-0.5); Lymphocytes Absolute Auto 1.39 K/mm3 (0.9-3.2); Lymphocytes Percent Auto 13.7 % (18.3-44.2); Mean Corpuscular HGB Conc 34.2 g/dl (32-36); Mean Corpuscular Hemoglobin 33.5 pg (26-34); Mean Corpuscular Volume 97.9 fl (80-100); Mean Platelet Volume 11.2 fl (7.4-10.4); Monocytes Absolute Auto 1.3 K/mm3 (0.1-0.6); Monocytes Percent Auto 12.8 % (2.6-8.5); Neutrophils Absolute Auto 7.3 K/mm3 (1.3-6.7); Neutrophils Percent Auto 71.3 % (45.5-73.1); Platelet Count Result 217 k/mm3 (150-375); Red Blood Count 3.79 M/mm3 (4.6-6.20); Red Cell Distribution Width 12.4 % (11.5-14.5); White Blood Count 10.2 K/mm3 (4.5-10.0)
[2024-01-23 09:19] LABS: Alanine Aminotransferase 102 U/L (6-50); Albumin Level 3.8 g/dL (3.5-5.1); Alkaline Phosphatase 103 U/L (38-126); Anion Gap 9 mmol/L (4-12); Aspartate Amino Transferase 53 U/L (17-59); Bilirubin,Total 0.6 mg/dL (0.2-1.3); Blood Urea Nitrogen 25 mg/dL (9-20); Calcium 9.3 mg/dL (8.4-10.2); Carbon Dioxide 24 mmol/L (22-30); Chloride 103 mmol/L (98-107); Estimated CRCL calculation 52 ml/min; Estimated Glomerular Filt Rate 50; Glucose 104 mg/dL (65-110); Magnesium 1.7 mg/dL (1.6-2.3); Potassium 4.5 mmol/L (3.4-5.0); Sodium 136 mmol/L (137-145)
[2024-01-23] MEDS: carvediloL 6.25 MG TABLET PO ×2 (09:37→17:13)
[2024-01-23] MEDS: LOSARTAN POTASSIUM 100 MG TABLET PO (09:37)
[2024-01-23] MEDS: ASPIRIN 81 MG CHEWABLE TABLET PO (09:38)
[2024-01-23] MEDS: PANTOPRAZOLE 40 MG TABLET PO (09:38)
[2024-01-23] MEDS: SPIRONOLACTONE 25 MG TABLET PO (09:38)
[2024-01-23] MEDS: ATORVASTATIN 40 MG TABLET PO (09:38)
[2024-01-23] MEDS: PIPERACILLN/TAZ 3.375GM/NS50ML 3.375 GM/50 ML BAG IVPB ×3 (14:14→23:38)
--- NOTE | 2024-01-23 14:19 | PM.CNGS ---
Assessment and Plan Assessment and plan (1) Cholelithiasis with cholecystitis: Code(s): K80.10 - Calculus of gallbladder with chronic cholecystitis without obstruction Status: Acute Assessment and Plan: Patient presented with epigastric abdominal pain x [address] scan abdomen/pelvis on admission showed gallbladder distention with cholelithiasis. RUQ abdominal ultrasound showed possible acute cholecystitis. The patient's abdominal pain has resolved since admission. He is not currently complaining of any abdominal pain and only has very mild tenderness in the RUQ on exam. Discussed treatment options with the patient in detail of both nonoperative management versus proceeding with surgical intervention. Since his pain has resolved and he is feeling much better, we will advance his diet. If he is able to tolerate a diet, then he could be discharge home with oral antibiotics and on a low fat diet when medically stable. He will eventually need a laparoscopic cholecystectomy, which we could scheduled as an outpatient if he is discharged. Although, if he is not able to tolerate a diet, then we will try scheduling him for a cholecystectomy on this admission. Continue IV Zosyn. (2) Acute kidney injury: Code(s): N17.9 - Acute kidney failure, unspecified Status: Acute Assessment and Plan: Creatinine 1.8 on admission and down to 1.4 today. In review of his labs, he does not appear to have any chronic kidney disease. Management per primary service. (3) Acute epigastric pain: Code(s): R10.13 - Epigastric pain Status: Acute Assessment and Plan: Pain has resolved. Cardiac workup negative. Epigastric pain likely related to his gallbladder, see plan above. (4) S/P laryngectomy: Code(s): Z90.02 - Acquired absence of larynx Status: Chronic Assessment and Plan: Laryngeal cancer in remission s/p radiation and laryngectomy and esophagectomy in 2009. He has a permanent tracheostomy with a voice prosthesis. (5) Tracheostomy present: Code(s): Z93.0 - Tracheostomy status Status: Chronic (6) Aortic stenosis: Code(s): I35.0 - Nonrheumatic aortic (valve) stenosis Status: Chronic Assessment and Plan: In review of his chart, his most recent echocardiogram was from 2020 and showed mild aortic stenosis. (7) Chronic diastolic CHF (congestive heart failure): Code(s): I50.32 - Chronic diastolic (congestive) heart failure Status: Chronic Assessment and Plan: Echocardiogram in 2020 showed grade I diastolic dysfunction with EF of 70%. No recent echo in our system. (8) Prediabetes: Code(s): R73.03 - Prediabetes Status: Chronic Assessment and Plan: HgbA1C in November was 6.3. Not on any medication. (9) Carotid stenosis, right: Code(s): I65.21 - Occlusion and stenosis of right carotid artery Status: Chronic Assessment and Plan: Remote history of right carotid stent placement years ago after treatment for his laryngeal cancer felt that the carotid stenosis was related to his radiation treatment. (10) Essential (primary) hypertension: Code(s): I10 - Essential (primary) hypertension Status: Chronic (11) Heavy alcohol use: Code(s): F10.90 - Alcohol use, unspecified, uncomplicated Status: Acute Assessment and Plan: Reports 6 beers per day. Plan I have discussed the patient's case and plan of care with Dr. Limon. Thank you for allowing us to see the patient in consultation and we will continue to follow along with you. History of Present Illness Consult details Consult date: 01/23/24 Reason for consult: other (Cholecystitis) Requesting physician: Lukas Mejia MD Narrative: This is a 68-year-old man with a PMH of hypertension, prediabetes, carotid stenosis s/p stent, hypothyroidism, hyperlipidemia, and remote history of laryngeal cancer status post laryngectomy and esophagectomy in
[2024-01-24] MEDS: SODIUM CHLORIDE 0.9% IV 1,000 ML 125 ML IV CONT (02:26)
[2024-01-24 04:57] VITALS: BP 134/60; PULSE 68; RESP 16; TEMP 36.9; O2SAT 98
[2024-01-24] MEDS: PIPERACILLN/TAZ 3.375GM/NS50ML 3.375 GM/50 ML BAG IVPB (06:03)
[2024-01-24] MEDS: LEVOTHYROXINE SODIUM 75 MCG TABLET PO (06:03)
[2024-01-24 06:24] LABS: Basophils Absolute Auto 0.1 K/mm3 (0.0-0.1); Basophils Percent Auto 0.7 % (0.2-1.2); Eosinophils Absolute Auto 0.3 K/mm3 (0-0.3); Eosinophils Percent Auto 4.3 % (0-4.4); Hematocrit 37.6 % (42.0-52.0); Hemoglobin 12.3 g/dL (14.0-18.0); Immature Granulocyte Absolute 0.02 K/mm3 (0.00-0.031); Immature Granulocyte Percent A 0.3 % (0-0.5); Lymphocytes Absolute Auto 1.44 K/mm3 (0.9-3.2); Lymphocytes Percent Auto 20.4 % (18.3-44.2); Mean Corpuscular HGB Conc 32.7 g/dl (32-36); Mean Corpuscular Hemoglobin 32.2 pg (26-34); Mean Corpuscular Volume 98.4 fl (80-100); Mean Platelet Volume 10.5 fl (7.4-10.4); Neutrophils Absolute Auto 4.3 K/mm3 (1.3-6.7); Neutrophils Percent Auto 60.3 % (45.5-73.1); Platelet Count Result 196 k/mm3 (150-375); Red Blood Count 3.82 M/mm3 (4.6-6.20); Red Cell Distribution Width 12.3 % (11.5-14.5); White Blood Count 7.1 K/mm3 (4.5-10.0)
[2024-01-24 06:44] LABS: Alanine Aminotransferase 83 U/L (6-50); Albumin Level 3.5 g/dL (3.5-5.1); Alkaline Phosphatase 108 U/L (38-126); Anion Gap 10 mmol/L (4-12); Aspartate Amino Transferase 41 U/L (17-59); Bilirubin,Total 0.9 mg/dL (0.2-1.3); Blood Urea Nitrogen 18 mg/dL (9-20); Calcium 8.7 mg/dL (8.4-10.2); Carbon Dioxide 21 mmol/L (22-30); Chloride 105 mmol/L (98-107); Estimated CRCL calculation 56 ml/min; Estimated Glomerular Filt Rate 55; Glucose 93 mg/dL (65-110); Magnesium 1.5 mg/dL (1.6-2.3); Potassium 4.4 mmol/L (3.4-5.0); Sodium 136 mmol/L (137-145)
--- NOTE | 2024-01-24 07:51 | PM.PNGS ---
Progress Note: A&P Assessment and Plan (1) Cholelithiasis with cholecystitis: Qualifiers: Cholelithiasis location: gallbladder Cholecystitis acuity: chronic Biliary obstruction: without biliary obstruction Qualified Code(s): K80.10 - Calculus of gallbladder with chronic cholecystitis without obstruction Code(s): K80.10 - Calculus of gallbladder with chronic cholecystitis without obstruction Status: Acute Assessment and Plan: Acute biliary colic has resolved. Okay for patient to be discharged on low-fat diet. Will schedule him to have laparoscopic cholecystectomy as an outpatient in the near future. I instructed the patient on the nature of the surgery, the length of the surgery, the outpatient discharge, the usual recovery, as well as risks and benefits. All questions were answered. Okay to discharge and I will have my office arrange for his surgery to be done in the next couple of weeks as an outpatient. Will ask Anesthesiology to see in consultation to better assess his suitability for his surgery to be done here with his cardiac disease as well as tracheostomy status. (2) Heavy alcohol use: Code(s): F10.90 - Alcohol use, unspecified, uncomplicated Status: Acute Assessment and Plan: Advised to quit or greatly reduce. Does not seem inclined to do so. (3) Chronic diastolic CHF (congestive heart failure): Code(s): I50.32 - Chronic diastolic (congestive) heart failure Status: Chronic (4) Aortic stenosis: Qualifiers: Cardiac valve disease etiology: etiology unspecified Qualified Code(s): I35.0 - Nonrheumatic aortic (valve) stenosis Code(s): I35.0 - Nonrheumatic aortic (valve) stenosis Status: Chronic (5) S/P laryngectomy: Code(s): Z90.02 - Acquired absence of larynx Status: Chronic (6) Tracheostomy present: Code(s): Z93.0 - Tracheostomy status Status: Chronic Subjective Subjective Date/Time Seen: 01/24/24 07:51 Patient reports: no new complaints, feels better, pain is less (No abdominal pain), tolerating a regular diet (Low-fat diet), voiding w/o difficulty and afebrile Review of Systems Review of Systems: All systems reviewed & are unremarkable except as noted in HPI and below (HPI) Exam Const: General: comfortable and no acute distress Orientation/consciousness: patient oriented x3 Neck: Neck: other (Tracheotomy again noted) GI: Inspection: normal to inspection, non-distended and obesity GI Palp: Yes Soft to palpation, No Tenderness to palpation present (GI), No Guarding due to palpation present (GI) and No Rebound tenderness present Auscultation: normal bowel sounds Neuro: General: patient oriented x3 and no focal motor deficits Extrem: General: no calf tenderness and no edema Psych: Affect: normal affect Insight: Good insight present (Psych) Judgement: Good judgement present (Psych) Objective Data Vital Signs Vital Signs: Vital Signs - 24 hr 01/23/24 08:00 01/23/24 09:37 01/23/24 12:00 Temperature 36.8 C 36.7 C Pulse Rate 66 80 60 Respiratory Rate 16 12 Blood Pressure 118/69 114/62 Pulse Oximetry 95 96 Oxygen Delivery 01/23/24 08:00 01/23/24 15:34 01/23/24 16:52 Temperature 36.7 C Pulse Rate 63 Respiratory Rate 14 Blood Pressure 113/52 L Pulse Oximetry 98 Oxygen Delivery Room Air Room Air 01/23/24 17:13 01/23/24 20:00 01/23/24 21:30 Temperature 36.8 C Pulse Rate 73 61 Respiratory Rate 16 Blood Pressure 126/67 Pulse Oximetry 99 Oxygen Delivery Room Air 01/24/24 04:57 Temperature 36.9 C Pulse Rate 68 Respiratory Rate 16 Blood Pressure 134/60 Pulse Oximetry 98 Oxygen Delivery Intake/Output Intake/Output: Intake & Output 01/21/24 01/22/24 01/23/24 01/24/24 23:59 23:59 23:59 23:59 Intake Total 2770.0 1300 Output Total 600 Balance 2170.0 1300 Meds/Results Medications: Active Medications Generic Name Dose
[2024-01-24 07:55] VITALS: BP 138/79; PULSE 67; O2SAT 97
[2024-01-24 07:56] VITALS: PULSE 67
[2024-01-24] MEDS: carvediloL 6.25 MG TABLET PO (07:56)
[2024-01-24] MEDS: ASPIRIN 81 MG CHEWABLE TABLET PO (07:56)
[2024-01-24] MEDS: ATORVASTATIN 40 MG TABLET PO (07:56)
[2024-01-24] MEDS: PANTOPRAZOLE 40 MG TABLET PO (07:57)
[2024-01-24] MEDS: LOSARTAN POTASSIUM 100 MG TABLET PO (07:57)
[2024-01-24 08:04] VITALS: O2SAT 97
--- NOTE | 2024-01-24 08:29 | PM.IMPN ---
Progress Note: A&P Assessment and Plan (1) Acute epigastric pain: Code(s): R10.13 - Epigastric pain Status: Acute (2) Acute kidney injury: Code(s): N17.9 - Acute kidney failure, unspecified Status: Acute (3) Cholelithiasis: Code(s): K80.20 - Calculus of gallbladder without cholecystitis without obstruction Status: Acute (4) HTN (hypertension): Qualifiers: Hypertension type: essential hypertension Qualified Code(s): I10 - Essential (primary) hypertension Code(s): I10 - Essential (primary) hypertension Status: Acute (5) Chronic diastolic CHF (congestive heart failure): Code(s): I50.32 - Chronic diastolic (congestive) heart failure Status: Chronic (6) Aortic stenosis: Qualifiers: Cardiac valve disease etiology: etiology unspecified Qualified Code(s): I35.0 - Nonrheumatic aortic (valve) stenosis Code(s): I35.0 - Nonrheumatic aortic (valve) stenosis Status: Chronic (7) Prediabetes: Code(s): R73.03 - Prediabetes Status: Chronic Plan Patient is a 68-year-old gentleman presents emergency department with chief complaint of epigastric pain that radiates into his back and shoulder. Associated is nausea to some extent. No vomiting. No fever. He was hypertensive on ED evaluation. Show any acute ST-T changes initial troponin was negative. Laboratory study showed creatinine 1.8 and last creatinine was 1.07. CT scan showed cholelithiasis without evidence of cholecystitis. Serial troponin was negative. Urinalysis is negative. Lipase came back at 127. He is admitted in this setting for further treatment. He reports no further abdominal pain. He Is currently NPO for an abdominal ultrasound. His symptomatology could be related to gastritis/PUD/cholelithiasis related no signs and symptoms of cholecystitis. Will get gallbladder ultrasound colic to presence of cholelithiasis. If recurrent pain may need to see general surgery sooner. Will watch for any recurrence of his symptoms and check gallbladder ultrasound. Ruled out for ACS with serial troponin negative. Does have NIGEL and received IV fluid resuscitation will recheck his labs today and monitor. He does have a history of GERD and will be placed on PPI daily Hypertension blood pressure much improved now. Continue on home medication. Escalated hypertension on arrival to the ED likely related to pain Congestive heart failure systolic compensated Pre diabetes Hyperlipidemia Hypothyroid 01/23 Gallstone with Chronic cholecystitis pain is tolerable start low-fat diet per General surgery recommendation patient condition continues to to improve, willl discharge patient home and slight surgery treatment of patient per general surgeon's recommendation pt is on Zosyn IV, patient is afebrile, leukocytosis has resolved acute renal failure Possible due to poor intake urinalysis unremarkable patient is on fluid resuscitation Kidney function is improving, creatinine trending down to 1.3 BUN 18 avoid nephrotoxic medication essential hypertension Blood pressure is well controlled patient denies chest pain EKG shows sinus rhythm, troponin negative does not support ACS Alcohol abuse No sign of alcohol withdrawal recommend patient stop drinking alcohol, patient accept advice DVT prophylaxis Lovenox Code status full code Subjective Date/time seen: 01/24/24 08:29 Interval history: patient feels better, denies chest pain, abdomen pain, nausea vomiting diarrhea patient is afebrile, blood pressure stable Exam Narrative: GENERAL: The patient is well developed, not in acute distress HEENT: Nonicteric sclerae, PERRLA, EOMI. Oropharynx clear. Moist mucous membranes. Conjunctivae appear well perfused. status post tracheostomy CHEST: Chest wall is nontender. HEART: Regular rate and rhythm without murmur, rubs, or gallops LUNGS: Clear to auscultation
--- NOTE | 2024-01-24 08:45 | PM.DS ---
DS: Admitting Diagnosis Discharge Date 01/23 Admitting Diagnosis (1) Acute epigastric pain: Code(s): R10.13 - Epigastric pain Status: Acute (2) Acute kidney injury: Code(s): N17.9 - Acute kidney failure, unspecified Status: Acute (3) Cholelithiasis: Code(s): K80.20 - Calculus of gallbladder without cholecystitis without obstruction Status: Acute (4) HTN (hypertension): Qualifiers: Hypertension type: essential hypertension Qualified Code(s): I10 - Essential (primary) hypertension Code(s): I10 - Essential (primary) hypertension Status: Acute (5) Chronic diastolic CHF (congestive heart failure): Code(s): I50.32 - Chronic diastolic (congestive) heart failure Status: Chronic (6) Aortic stenosis: DS: Discharge Diagnosis Discharge Diagnosis (1) Acute epigastric pain: Code(s): R10.13 - Epigastric pain Status: Acute (2) Acute kidney injury: Code(s): N17.9 - Acute kidney failure, unspecified Status: Acute (3) Cholelithiasis: Code(s): K80.20 - Calculus of gallbladder without cholecystitis without obstruction Status: Acute (4) HTN (hypertension): Qualifiers: Hypertension type: essential hypertension Qualified Code(s): I10 - Essential (primary) hypertension Code(s): I10 - Essential (primary) hypertension Status: Acute (5) Chronic diastolic CHF (congestive heart failure): Code(s): I50.32 - Chronic diastolic (congestive) heart failure Status: Chronic (6) Aortic stenosis: Qualifiers: Cardiac valve disease etiology: etiology unspecified Qualified Code(s): I35.0 - Nonrheumatic aortic (valve) stenosis Code(s): I35.0 - Nonrheumatic aortic (valve) stenosis Status: Chronic (7) Prediabetes: Code(s): R73.03 - Prediabetes Status: Chronic DS: Summary Hospital Course Hospital Course: Patient is a 68-year-old gentleman presents emergency department with chief complaint of epigastric pain that radiates into his back and shoulder. Associated is nausea to some extent. No vomiting. No fever. He was hypertensive on ED evaluation. Show any acute ST-T changes initial troponin was negative. Laboratory study showed creatinine 1.8 and last creatinine was 1.07. CT scan showed cholelithiasis without evidence of cholecystitis. Serial troponin was negative. Urinalysis is negative. Lipase came back at 127. He is admitted in this setting for further treatment. He reports no further abdominal pain. He Is currently NPO for an abdominal ultrasound. His symptomatology could be related to gastritis/PUD/cholelithiasis related no signs and symptoms of cholecystitis. Will get gallbladder ultrasound colic to presence of cholelithiasis. If recurrent pain may need to see general surgery sooner. Will watch for any recurrence of his symptoms and check gallbladder ultrasound. Ruled out for ACS with serial troponin negative. Does have NIGEL and received IV fluid resuscitation will recheck his labs today and monitor. He does have a history of GERD and will be placed on PPI daily Hypertension blood pressure much improved now. Continue on home medication. Escalated hypertension on arrival to the ED likely related to pain Congestive heart failure systolic compensated Pre diabetes Hyperlipidemia Hypothyroid 01/23 Gallstone with Chronic cholecystitis pain is tolerable start low-fat diet per General surgery recommendation patient condition continues to to improve, discharge patient home and selective surgery treatment out patient per general surgeon's recommendation pt is on Zosyn IV, patient is afebrile, leukocytosis has resolved transition to Augmentin p.o. acute renal failure Possible due to poor intake urinalysis unremarkable patient is on fluid resuscitation Kidney function is improving, creatinine trending down to 1.3 BUN 18 avoid nephrotoxic me
--- NOTE | 2024-01-24 15:45 | P.PNAN_ITS ---
Anes - Prog Note Post-Op Date/Time: 01/24/24 15:45 Vital Signs: Last Vital Signs Temp 36.9 C 01/24/24 04:57 Pulse 67 01/24/24 07:56 Resp 16 01/24/24 04:57 BP 138/79 01/24/24 07:55 Pulse Ox 97 01/24/24 08:04 O2 Del Method Room Air 01/24/24 08:04 Pain Score (VAS): . I/O: Intake & Output 01/23/24 01/24/24 01/24/24 23:59 07:59 15:59 Intake Total 628.3 1300 954 Balance 628.3 1300 954 Laboratory Tests 01/24/24 06:08 01/24/24 06:08 01/24/24 06:08 WBC 7.1 RBC 3.82 L Hgb 12.3 L Hct 37.6 L MCV 98.4 MCH 32.2 MCHC 32.7 RDW 12.3 Plt Count 196 MPV 10.5 H Immature Gran % (Auto) 0.3 Neut % (Auto) 60.3 Lymph % (Auto) 20.4 Person % (Auto) 14.0 H Eos % (Auto) 4.3 Baso % (Auto) 0.7 Lymph # (Auto) 1.44 Person # (Auto) 1.0 H Eos # (Auto) 0.3 Baso # (Auto) 0.1 Abs Immat Gran (auto) 0.02 Absolute Neuts (auto) 4.3 Absolute Nucleated RBC 0.000 Nucleated RBC % 0.0 Sodium 136 L Potassium 4.4 Chloride 105 Carbon Dioxide 21 L Anion Gap 10 BUN 18 Creatinine 1.30 Estim Creat Clear Calc 56 Estimated GFR 55 L Glucose 93 Calcium 8.7 Magnesium 1.5 L Total Bilirubin 0.9 AST 41 ALT 83 H Alkaline Phosphatase 108 Total Protein 6.0 L Albumin 3.5 Other Findings: I was asked to see if this patient was able to have his laparoscopic cholecyste ctomy at [facility] with concerns of his laryngectomy. I asked the patient how his tracheostomy stoma works and he states that there is no exterior button but rather an interior valve. He also stated there seemed to be some connection with his esophagus. Due to the concern of passing a ETT blindly passed this valve, needing to confirm by flexible bronchoscopy and having no ENT surgeon available were something to happen that is beyond our scope, I felt his care would be more appropriate at a tertiary care center.
== END 2024-01-24 10:39 | disposition home or self-care (01) ==
LOC: ANHED 01-23 01:06 → ANHIMU 01-23 02:06 → ANH2MED 01-24 08:51 → ANHIMU 01-27 07:55
PROVIDERS: Emergency Medicine; Internal Medicine; Admitting Provider Internal Medicine; Emergency Provider Emergency Medicine; PCP Family Medicine; Visit Provider Hospitalist
DX: K80.10 Calculus of gallbladder with chronic cholecystitis without obstruction (principal); N17.9 Acute kidney failure, unspecified; I35.0 Nonrheumatic aortic (valve) stenosis; I11.0 Hypertensive heart disease with heart failure; I50.32 Chronic diastolic (congestive) heart failure; R73.03 Prediabetes; K21.9 Gastro-esophageal reflux disease without esophagitis; M10.9 Gout, unspecified; I65.21 Occlusion and stenosis of right carotid artery; E78.5 Hyperlipidemia, unspecified; E89.0 Postprocedural hypothyroidism; F17.220 Nicotine dependence, chewing tobacco, uncomplicated; Z85.21 Personal history of malignant neoplasm of larynx; Z79.82 Long term (current) use of aspirin; Z90.02 Acquired absence of larynx; Z93.0 Tracheostomy status; F10.90 Alcohol use, unspecified, uncomplicated
CPT/HCPCS: 36415; 71046; 74176; 76705; 80053; 81003; 83690; 83735; 84484; 85025; 93005; 96361; 96365; 96375; 99285; A9270; G0378; J1170; J2405; J2543; J7030

== ENCOUNTER 2024-08-20 08:29 | Outpatient (CLI) | payer MEDICARE, SELFPAY ==
--- NOTE | ~2024-08-20 | US_ITS ---
EXAMINATION: US carotid duplex BI DATE: 08/20/2024 09:24 INDICATION: Syncope. TECHNIQUE: Grayscale, color Doppler, and pulsed Doppler images of the cervical carotid arteries were obtained. The degree of vessel stenosis is placed in one of the following categories: normal, <50%, 5 0-69%, >=70% but less than near-occlusion, near-occlusion, or total occlusion. Note that percent sten osis relative to normal distal artery lumen diameter is indirectly measured from velocity measurement s as described by Bran, et al. Radiology 2003; 229:340-346. Notes: Normal: Peak systolic velocity <125 centimeters/sec and no plaque <50%. Peak systolic velocity <125 ( EDV <40; ICA/CCA PSV ratio <2.0; used these factors only a tandem lesions or low cardiac output or co ntralateral disease) 50-69 %: PSV 125-230 (EDV 40-100; ratio 2-4) >= 70% but less than near occlusion: PSV greater than 230 (EDV > 100; ratio> 4.0) Near Occlusion: PSV that is variable; markedly narrowed lumen Occlusion: Absent flow on color/spectral Doppler and no lumen on vincent scale. COMPARISON: None. FINDINGS: RIGHT: The right common carotid artery (CCA) peak systolic velocity (PSV) is 116 cm/s. The right internal ca rotid artery (ICA) PSV is 56 cm/s. The right ICA end-diastolic velocity (EDV) is 20 cm/s. The right I CA/CCA PSV ratio is 0.6. The external carotid artery (ECA) PSV is 125 cm/s. There is antegrade flow i n the right vertebral artery. LEFT: The left CCA PSV is 88 cm/s. The left ICA PSV is 164 cm/s. The left ICA EDV is 44 cm/s. The left ICA/ CCA PSV ratio is 1.9. The ECA PSV is 138 cm/s. There is antegrade flow in the left vertebral artery. IMPRESSION: 1. Less than 50% stenosis in the right internal carotid artery by sonographic criteria. 2. 50-69% stenosis in the left internal carotid artery by sonographic criteria. Reviewed, dictated and finalized at location A. IMPRESSION: 1. Less than 50% stenosis in the right internal carotid artery by sonographic c aníbaleria. 2. 50-69% stenosis in the left internal carotid artery by sonographic criteria.
--- OUTSIDE RECORDS SUMMARY | 2024-08-20 08:36 | XMS_ITS | Clinical Summary ---
Author Organization [facility] Address [address] [place] [place] [address] Phone Care Team Providers Care Windows Server Administrator Name Role Phone Hoa Rider DO Primary Care Provider +1- [phone] Allergies Active Allergy Reactions Criticality Noted Date Comments Cat Hair Std Allergenic Ext Itching Low 02/28/20 13 Medications levothyroxine (SYNTHROID) 75 mcg Oral tablet Take 75 mcg by mouth daily. Active lisinopril (PRINIVIL) 5 mg tablet Take 10 mg by mouth 2 times daily . Active SARAH ASPIRIN ORAL Take by mouth. Active atorvastatin (LIPITOR) 10 mg tablet Take 10 mg by mouth Daily LATE. Active omeprazole (PriLOSEC) 20 mg Capsule, Delayed Release(E.C.) Take 20 mg by mouth. Active carvediloL (COREG) 6.25 mg tablet 11/02/2020 Active tadalafil (CIALIS) 5 mg tablet Take 5 mg by mouth daily. 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 Encounters Date Type Department Care Team Description 07/20/2024 External Device Data STL ABSTRACTION Provider, Abstract 07/15/2024 External Device Data STL ABSTRACTION Provider, Abstract 07/01/2024 External Device Data STL ABSTRACTION Provider, Abstract 06/30/2024 External Device Data STL ABSTRACTION Provider, Abstract 06/03/2024 External Device Data STL ABSTRACTION Provider, Abstract 06/02/2024 External Device Data STL ABSTRACTION Provider, Abstract 05/27/2024 External Device Data STL ABSTRACTION Provider, Abstract from Last 3 Months Social History Tobacco Use Types Packs/Day Years Used Date Smoking Tobacco: Former Cigarettes 0.5 40 0 06/06/1968 - 06/06/2008 Smokeless Tobacco: Never Alcohol Use Standard Drinks/Week Comments Yes 24 (1 standard drink = 0.6 oz pu re alcohol) Sex and Gender Information Value Date Recorded Sex Assigned at Not on file Legal Sex Male 3:33 AM CABIN CREW Gender Identity Not on file Sexual Orientation Not on file Occupation Industry Job Start Date Job End Date Not on file Not on file Not on file Not on file Last Filed Vital Signs Vital Sign Reading Time Taken Comments Blood Pressure 124/78 02/28/2024 9:43 AM CDT Pulse 72 02/28/2024 9:43 AM CDT Temperature 36.6 C (97.8 F) 01/01/2022 11:09 AM CDT Respiratory Rate 16 01/01/2022 11:0 9 AM CDT Oxygen Saturation 99% 02/28/2024 9:43 AM CDT Inhaled Oxygen Concentration - - Weight 105.7 kg (233 lb 0.4 oz) 02/28/2024 9:43 AM CDT Height 172.7 cm (5' 8 ) 02/28/2024 9:43 AM CDT Body Mass Index 35.43 02/28/2024 9:43 AM CDT Plan of Treatment Upcoming Encounters Date Type Department Care Team (Late st Contact Info) Description 12/15/2024 10:00 AM CDT Office Visit [facility] [address] [facility] [address] [place] [address] Ezra Garnica MD [address] [facility] [facility] [address] [place] [address] Health Maintenance Due Date Last Done Comments DTAP/TDAP/TD VACCINES (1 - Tdap) 1972 COLORECTAL SCREENING 1998 Colorectal Cancer Screening 1998 FIT-DNA Q 3 years 1998 FIT/FOBT Q 1 year 1998 Flex Sig/CT Colonography Q 5 years 1998 PNEUMOCOCCAL VACCINE 50+ YEARS (1 of 1 - PCV) 03/05/20 03 ZOSTER VACCINE (1 of 2) 2003 Abdominal Aortic Aneurysm (AAA) Screening 2018 INFLUENZA VACCINE (#1) 2023 RSV VACCINE (60+ or ) (1 - 1-dose 75+ series) 2028 Medical Devices Implanted Type Area Answering Service Telephone Operator Device Identifier Shelf Expiration Date Model / Serial / Lot Kit Post-Op W/ Larytube 2009-05 [id number] Implanted:Qty : 1 on 02/12/2018 by Ezra Garnica MD at [facility] Other N/A: Trachea ATOS MED 03/12/20202009-05 / / [id number] Stent Carotid Xact Tpr [id number] - [id number] Implanted:Qty : 1 on 03/04/2013 by Ned Ferreira MD at [facility] Stent Right: Arterial MARCUM- VASC DEVICE 09/10/2015 [id number] / [id number] / [id number] Description:Implantation of Right Carotid Artery Stent Insurance [employer]ET[employer] PPO [facility] Advance Directives For more information, please contact: [phone] * Full Code (Latest Code Status on File) Date Activated Date Inactivated Comments 01/01/2022 7:37 AM 01/01/2022 1:33 PM * Full Code Date Activated Date Inactivated Comments 02/12/2018 11:04 AM 02/12/2018 3:08 PM * Full Code Date Activated Date Inactivated Comments 02/12/2018 10:58 AM 02/12/2018 11:04 AM * Full Code Date Activated Date Inactivated Comments 06/13/2015 10:15 AM 06/13/2015 2:55 PM * Full Code Date Activated Date Inactivated Comments 06/13/2015 7:25 AM 06/13/2015 10:15 AM Care Teams Windows Server Administrator Relationship Specialty Start Date End Date Hoa Rider DO [address] [place] [id number] PCP - General Family Practice 09/27/21
--- OUTSIDE RECORDS SUMMARY | 2024-08-20 08:36 | XMS_ITS ---
Author Organization [facility] Address [address] [facility] 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 Past Treatment and Therapy Plans No past plan information found. Lifetime Dose Tracking * Chemical Lifetime Dose Automatic Entry Manual Entr y Effective Dose 10.8 mSv 10.8 mSv 0 mSv Total DLP 1,697 DLP 1,697 DLP 0 DLP CTDIvol Max 42.8 mGy 42.8 mGy 0 mGy CTDIvol Min 29.2 mGy 29.2 mGy 0 mGy
--- OUTSIDE RECORDS SUMMARY | 2024-08-20 08:36 | XMS_ITS | Clinical Summary ---
Author Organization [facility] [place] [address] Address [address] [place] [address] Care Team Providers Care Precision Assembly Inspector Name Role Phone Hoa Rider Primary Care Provider +1- [phone] Allergies No known active allergies Medications levothyroxine (SYNTHROID) 75 mcg tablet Take 1 tablet (75 mcg total) by mouth daily 07/07/2019 Active aspirin 81 mg enteric coated tablet Take 1 tablet (81 mg total) by mouth daily 30 tablet 11 07/29/2019 Active atorvastatin (LIPITOR) 40 mg tablet Take 1 tablet (40 mg total) by mouth daily 90 tablet 3 11/04/[address] (NexIUM) 20 mg capsule Take 1 capsule (20 mg total) by mouth as needed Active tadalafiL (CIALIS) 5 mg tablet Take 1 tablet (5 mg total) by mouth as needed 09/18/2021 Active spironolactone (ALDACTONE) 25 mg tablet TAKE 1 TABLET(25 MG) BY MOUTH DAILY 30 tablet 11 10/21/2023 Active losartan (COZAAR) 100 mg tablet TAKE 1 TABLET BY MOUTH EVERY DAY 90 tablet 3 12/25/2023 Active carvediloL (COREG) 6.25 mg tablet Take 1 tablet (6.25 mg total) by mouth 2 (two) times a day with meals 180 tablet 3 07/20/2024 Active Active Problems Problem Noted Date Diagnosed Date Stenosis of right carotid artery 05/14/2023 Medication side effects 05/14/2023 Primary hypertension 05/14/2023 Mixed hyperlipidemia 05/14/2023 Nonrheumatic aortic valve stenosis 01/24/2022 Esophageal lesion 06/13/2015 Pain 11/29/2009 Protein calorie malnutrition 11/29/2009 Hyperglycemia 11/28/2009 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 Tracheostomy status 11/28/2009 Encounters Date Type Department Care Team Description 06/19/2024 10:20 AM DEPARTMENT SPECIALIST Ancillary Procedure [facility] Medical [facility] Imaging at [address] [address] Viral URI with cough 06/19/2024 10:00 AM DEPARTMENT SPECIALIST Office Visit [facility] Medical Group Convenient Care at [address] [id number] Chio Vilchis NP Viral URI with cough (Primary Dx) 05/22/2024 8:30 AM DEPARTMENT SPECIALIST Office Visit [facility] Medical [facility] Cardiology [address] [place] [address] Isabel Anderson NP Nonrheumatic aortic valve stenosis (Primary Dx); Stenosis of right carotid artery; History of right common carotid artery stent placement; Primary hypertension from Last 3 Months Surgical History Surgery Date Site/Laterality Comments APPENDECTOMY CAROTID ARTERY ANGIOPLASTY THYROIDECTOMY, PARTIAL LARYNGECTOMY Medical History Medical History Date Comments Hypertension H/O carotid angioplasty Sinusitis Family History Medical History Relation Name Comments Prostate cancer Brother Prostate cancer Father Rectal cancer Mother Relation Name Status Comments Brother Alive Father Mother Social History Tobacco Use Types Packs/Day Years Used Date Smoking Tobacco: Former Smokeless Tobacco: Former Tobacco Cessation:Counseling Given: Not Answered Alcohol Use Standard Drinks/Week Comments Yes 42 (1 standard drink = 0.6 oz pu re alcohol) Sex and Gender Information Value Date Recorded Sex Assigned at Not on file Legal Sex Male 7:42 AM DEPARTMENT SPECIALIST Gender Identity Not on file Sexual Orientation Not on file Obstetrics History Last Filed Vital Signs Vital Sign Reading Time Taken Comments Blood Pressure 102/62 06/19/2024 9:53 AM DEPARTMENT SPECIALIST Pulse 74 06/19/2024 10:15 AM DEPARTMENT SPECIALIST Temperature 37.2 C (98.9 F) 06/19/2024 9:53 AM DEPARTMENT SPECIALIST Respiratory Rate 18 06/19/2024 9:53 AM DEPARTMENT SPECIALIST Oxygen Saturation 99% 06/19/2024 10:15 AM DEPARTMENT SPECIALIST Inhaled Oxygen Concentration - - Weight 101.2 kg (223 lb) 06/19/2024 9:53 AM DEPARTMENT SPECIALIST Height 172.7 cm (5' 8 ) 06/19/2024 9:53 AM DEPARTMENT SPECIALIST Body Mass Index 33.91 06/19/2024 9:53 AM DEPARTMENT SPECIALIST Plan of Treatment Health Maintenance Due Date Last Done Comments Colon Cancer Screening-Colonoscopy 1953 Depression Screening 1953 Hepatitis C Screening 1953 Prostate Cancer Screening-PSA 1953 DTaP/Tdap/Td Vaccine (1 - Tdap) 1964 Hepatitis B Screening 1971 Pneumococcal vaccine 65+ (1 of 1 - PCV) 2003 Zoster Vaccine (1 of 2) 2003 Abdominal Aortic Aneurysm (AAA) Screen 2018 Well Visit 65+ 2018 Fall Risk Assessment 02/08/2022 02/08/2021 Influenza Vaccine (#1) 2024 03/24/2019, 2017 Procedures Procedure Name Priority Date/Time Associated Diagnosis Comments XR CHEST PA LATERAL 2 VIEWS Schedule EZEQUIEL, Read EZEQUIEL (Appt Today, Awaiting Results) 06/19/2024 10:25 AM DEPARTMENT SPECIALIST Viral URI with cough from Last 3 Months Results * XR Chest PA Lateral 2 Views (06/19/2024 10:25 AM DEPARTMENT SPECIALIST) Anatomical Region Laterality Modality Body, Chest N/A Digital Radiogra phy 06/19/2024 1:26 PM DEPARTMENT SPECIALIST Narrative 06/19/2024 1:28 PM DEPARTMENT SPECIALIST EXAM DESCRIPTION: XR CHEST PA LATERAL 2 VIEWS REASON FOR STUDY: cough Pt complains of cough x 1 week. No chest surgery.No copd,asthma,heart disease. Hx throat cancer. Quit smoking in 2009, smoked for 30 years, varying on amount. TECHNIQUE: Frontal and lateral radiographic view(s) of the chest. COMPARISON: None FINDINGS: The heart, mediastinum, and pulmonary vasculature are grossly unremarkable. There are mild atherosclerotic changes of the aorta. There is no definite evidence of a pneumothorax. There is no definite evidence of a pleural effusion. There are mild patchy left basilar airspace opacities. There are degenerative changes of the spine. IMPRESSION: Mild patchy left basilar airspace opacities, which is likely related to subsegmental atelectasis/scarring and less likely developing airspace disease. THIS IS AN ELECTRONICALLY VERIFIED FINAL REPORT 06/19/2024 1:28 PM - Electronically signed by Eliigo Encarnacion D.O. PS T: Report ID: [id number] Reading Location: [id number] Procedure Note Eligio Encarnacion, DO - 06/19/2024 EXAM DESCRIPTION: XR CHEST PA LATERAL 2 VIEWS REASON FOR STUDY: cough Pt complains of cough x 1 week. No chest surgery.No copd,asthma,heartdisease. Hx throat cancer. Quit smoking in 2009, smoked for 30 years, varying on amount. TECHNIQUE: Frontal and lateral radiographic view(s) of the chest. COMPARISON: None FINDINGS: The heart, mediastinum, and pulmonary vasculature are grossly unremarkable. There are mild atherosclerotic changes of the aorta. Thereis no definite evidence of a pneumothorax. There is no definite evidence ofa pleural effusion. There are mild patchy left basilar airspace opacities. There are degenerative changes of the spine. IMPRESSION: Mild patchy left basilar airspace opacities, which is likely related to subsegmental atelectasis/scarring and less likely developing airspacedisease. THIS IS AN ELECTRONICALLY VERIFIED FINAL REPORT 06/19/2024 1:28 PM - Electronically signed by Eligio Encarnacion D.O. PS T: Report ID: [id number] Reading Location: [place] [address] Chio Vilchis NP IMG XR PROCEDURES Final Result from Last 3 Months Insurance [employer] MEDICARE [facility] [facility] [employer] Address: [address] [place] [address] [employer] Address: [address] [place] [address] Care Teams Precision Assembly Inspector Relationship Specialty Start Date End Date Hoa Rider DO PCP - General Family Medicine 07/28/19
--- OUTSIDE RECORDS SUMMARY | 2024-08-20 08:36 | XMS_ITS | Referral Summary ---
Author Organization [place] [address] Address [address] [place] [address] Care Team Providers Care [employer] Division Manager Name Role Phone Miguel ApriscaHoa fuentes Primary Care Provider +1- [phone] Encounters Date Type Department Care Team Description 06/19/2024 10:20 AM CANCER PROGRAM CONSULTANT Ancillary Procedure [facility] Medical Group Imaging at [address] [address] Viral URI with cough 06/19/2024 10:00 AM CANCER PROGRAM CONSULTANT Office Visit [facility] Medical Group Convenient Care at [address] [address] Chio Vilchis NP Viral URI with cough (Primary Dx) 05/22/2024 8:30 AM CANCER PROGRAM CONSULTANT Office Visit [facility] Medical Group Cardiology [address] [place] [address] [address] [place] [address] Isabel Anderson NP Nonrheumatic aortic valve stenosis (Primary Dx); Stenosis of right carotid artery; History of right common carotid artery stent placement; Primary hypertension from Last 3 Months Allergies No known active allergies Medications levothyroxine [...] 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 Tracheostomy status 11/28/2009 Social History Tobacco Use Types Packs/Day Years Used Date Smoking Tobacco: Former Smokeless Tobacco: Former Tobacco Cessation:Counseling Given: Not Answered Alcohol Use Standard Drinks/Week Comments Yes 42 (1 standard drink = 0.6 oz pu re alcohol) Sex and Gender Information Value Date Recorded Sex Assigned at Not on file Legal Sex Male 7:42 AM CANCER PROGRAM CONSULTANT Gender Identity Not on file Sexual Orientation Not on file Last Filed Vital Signs Vital Sign Reading Time Taken Comments Blood Pressure 102/62 06/19/2024 9:53 AM CANCER PROGRAM CONSULTANT Pulse 74 06/19/2024 10:15 AM CANCER PROGRAM CONSULTANT Temperature 37.2 C (98.9 F) 06/19/2024 9:53 AM CANCER PROGRAM CONSULTANT Respiratory Rate 18 06/19/2024 9:53 AM CANCER PROGRAM CONSULTANT Oxygen Saturation 99% 06/19/2024 10:15 AM CANCER PROGRAM CONSULTANT Inhaled Oxygen Concentration - - Weight 101.2 kg (223 lb) 06/19/2024 9:53 AM CANCER PROGRAM CONSULTANT Height 172.7 cm (5' 8 ) 06/19/2024 9:53 AM CANCER PROGRAM CONSULTANT Body Mass Index 33.91 06/19/2024 9:53 AM CANCER PROGRAM CONSULTANT Plan of Treatment Not on file Procedures Procedure Name Priority Date/Time Associated Diagnosis Comments XR CHEST PA LATERAL 2 VIEWS Schedule EZEQUIEL, Read EZEQUIEL (Appt Today, Awaiting Results) 06/19/2024 10:25 AM CANCER PROGRAM CONSULTANT Viral URI with cough from Last 3 Months Results * XR Chest PA Lateral 2 Views (06/19/2024 10:25 AM CANCER PROGRAM CONSULTANT) Anatomical Region Laterality Modality Body, Chest N/A Digital Radiogra phy 06/19/2024 1:26 PM CANCER PROGRAM CONSULTANT Narrative 06/19/2024 1:28 PM CANCER PROGRAM CONSULTANT EXAM DESCRIPTION: XR CHEST PA LATERAL 2 [...] Eligio Encarnacion D.O. PS T: Report ID: [id number] Reading Location: [id number] Procedure Note Eligio Encarnacion DO - 06/19/2024 EXAM DESCRIPTION: XR CHEST [...] Eligio Encarnacion D.O. PS T: Report ID: [id number] Reading Location: [place] [address] Chio Vilchis NP IMG XR PROCEDURES Final Result from Last 3 Months Insurance [facility] Care Teams [employer] Division Manager Relationship Specialty Start Date End Date Hoa Rider DO PCP - General Family Medicine 07/28/19
== END 2024-08-20 08:30 | disposition home or self-care (01) ==
PROVIDERS: PCP Family Medicine; Visit Provider Nurse Practitioner
DX: R55 Syncope and collapse (principal); I65.23 Occlusion and stenosis of bilateral carotid arteries
CPT/HCPCS: 93880

== ENCOUNTER 2024-09-02 08:19 | Outpatient (CLI) | payer MEDICARE, SELFPAY ==
--- NOTE | ~2024-09-02 | CT_ITS ---
CT Scan of the Chest without Contrast: Clinical Indication: Lung cancer screening, nicotine dependence Technique: Contiguous sections were acquired throughout the chest without intravenous contrast. Dose reduction technique was used on this scan by utilizing automated exposure control and iterative recon struction technique. The dose-length product (DLP) was 248.37 mGy-cm. COMPARISON: 06/24/2023 Findings: There is no evidence of any significant mediastinal, hilar or axillary lymphadenopathy. Coronary blair ry calcifications are present. There is no evidence of pleural or pericardial effusion. 6 mm upper lobe nodule mild stranding groundglass opacity is slightly increased from prior exam (axia l image 41). Mild emphysema. Images through the upper abdomen reveal probable small gallstones/gallbladder sludge. Impression: Lung RADS 3: Probably benign. 6 month follow-up screening CT recommended given minimal increase in si ze of right upper lobe nodule. Reviewed, dictated and finalized at [facility]. Impression: Lung RADS 3: Probably benign. 6 month follow-up screening CT recommended given minimal increase in size of right upper lobe nodule.
--- NOTE | ~2024-09-02 | MMUS_ITS ---
EXAMINATION: MM diagnostic shreya RT w shruthi, US breast RT complete HISTORY: Mastodynia TECHNIQUE: Additional 3-D tomosynthesis images of the breasts were performed and synthetic 2-D images were generated. CAD analysis was submitted and interpreted. High resolution complete right breast ul trasound was performed. COMPARISON: None BREAST PARENCHYMAL COMPOSITION: Not Dense: The breasts are almost entirely fatty. FINDINGS: MAMMOGRAPHIC FINDINGS: There is mild bilateral gynecomastia. No suspicious masses, calcifications or architectural distortio n. ULTRASOUND: Complete US of all 4 quadrants of the right breast/s and retroareolar region was reviewed. Normal het erogeneous echotexture without focal solid or cystic mass. IMPRESSION: 1. No evidence for malignancy in the right breast. Mild bilateral gynecomastia. 2. Recommend clinical management for gynecomastia. BI-RADS Category 2: Benign finding(s). Reviewed, dictated and finalized at location A. IMPRESSION: 1. No evidence for malignancy in the right breast. Mild bilateral gynecomastia. 2. Recommend clinical management for gynecomastia. BI-RADS Category 2: Benign finding(s).
== END 2024-09-02 08:20 | disposition home or self-care (01) ==
LOC: MICIMG 08:20
PROVIDERS: PCP Family Medicine; Visit Provider Nurse Practitioner
DX: Z12.2 Encounter for screening for malignant neoplasm of respiratory organs (principal); Z87.891 Personal history of nicotine dependence; N64.4 Mastodynia
CPT/HCPCS: 71271; 76641; 77061; 77065; G0279